=== PATIENT | male | born 1980 | race Two or more races ===

== ENCOUNTER 2025-03-18 21:35 | Emergency (ER) | payer MEDICAID ==
[~2025-03-18] VITALS: Ht 172.7 cm; Wt 74.8 kg
[2025-03-18] MEDS ORDERED: CYCLOBENZAPRINE 10 MG TABLET ONE (22:44)
[2025-03-18] MEDS ORDERED: ONDANSETRON 4 MG TAB.RAPDIS ONE (22:45)
[2025-03-18] MEDS ORDERED: IBUPROFEN 400 MG TABLET ONE (22:45)
[2025-03-18] MEDS: IBUPROFEN 400 MG TABLET PO ONE (22:51)
[2025-03-18] MEDS: ONDANSETRON 4 MG TAB.RAPDIS SL ONE (22:51)
[2025-03-18] MEDS: CYCLOBENZAPRINE 10 MG TABLET PO ONE (22:51)
[2025-03-18] MEDS ORDERED: CYCL5TAB PO (22:57)
[2025-03-18] MEDS ORDERED: ONDA4TAB11 PO (22:57)
[2025-03-18] MEDS ORDERED: SULI200T4 PO (22:57)
[2025-03-19 00:48] VITALS: BP 133/81; TEMP 98.7; O2SAT 96
== END 2025-03-19 00:49 | disposition home or self-care (01) ==
LOC: ER 21:41
DX: S06.0X0A Concussion without loss of consciousness, initial encounter (principal); M54.50 Low back pain, unspecified; R11.0 Nausea; R51.9 Headache, unspecified; V43.52XA Car driver injured in collision with other type car in traffic accident, initial encounter; Y93.89 Activity, other specified; Y92.488 Other paved roadways as the place of occurrence of the external cause; Y99.8 Other external cause status
CPT/HCPCS: 99284; 72125; 70450; Q0162